=== PATIENT | female | born 1960 | race Asian ===

== ENCOUNTER 2018-10-22 09:31 | Outpatient (CLI) | payer OTHER, SELFPAY ==
[2018-10-22] VITALS (8 sets, daily range): BP systolic 91–126; BP diastolic 28–99; PULSE 59–72; RESP 16–18; O2SAT 95–99
--- NOTE | 2018-10-22 09:33 | DI.RAD.S_ITS ---
PROCEDURE: PAIN C/T FACET INJ/BLK 1ST L INDICATIONS: SPONDYLOSIS FINDINGS: Fluoroscopic spot filming was performed to verify placement of spinal needles at the C5-C6 and C6-C7 level(s), as labeled on the films. Appropriate location(s) of the needle tip(s) was confirmed by injection of iodinated contrast. IMPRESSION: Fluoroscopy for pain management. Dictated by: Katrin Espinosa M.D. on 10/22/2018 at 14:12 Approved by: Katrin Espinosa M.D. on 10/22/2018 at 14:12
--- NOTE | 2018-10-22 10:26 | PM.PROC.1 ---
Procedures Date/Time Date of procedure: 10/22/18 Time of procedure: 10:26 General Procedure description: PREOP DIAGNOSIS 1. FACET ARTHROPATHY 2. AXIAL NECK PAIN POST OP DIAGNOSIS 1. FACET ARTHROPATHY 2. AXIAL NECK PAIN PROCEDURES 1. FLUOROSCOPICALLY GUIDED, CONTRAST-CONTROLLED LEFT C5/6 AND C6/7 FACET JOINT INJECTIONS WITH CONSCIOUS SEDATION. PHYSICIAN: Jd Couch, DO INDICATIONS Kayce is referred by Dr. Tolbert for treatment of Axial Neck Pain DESCRIPTION OF PROCEDURE Fluoroscopically guided, contrast-controlled left C5/6 and C6/7 facet joint injections with conscious sedation. Following denial of allergy and review of potential side effects and complications, including, but not necessarily limited to, infection, allergic reaction, local tissue breakdown, stroke, temporary or permanent nerve injury and paralysis, the patient indicated that the patient understood and agreed to proceed. An informed consent document was signed by the patient, witnessed by a nurse, and placed in the patient's chart. Additionally, other treatment options including medications, modalities, and physical therapy were reviewed with the patient. After review of previous anaesthesic history and IV conscious sedation the patient was deemed safe to proceed with todays procedure with IV conscious sedation as ASA class II designation. Safety time-out was performed to confirm patient ID, procedure to be performed and site of procedure. IV sedation was accomplished with a combination of 2mg of Versed and 50mcg of Fentanyl was administered by the RN after DO order, titrated to patient comfort during the course of the procedure while the patient remained responsive to all verbal commands In the prone position, following sterile prep and drape of the cervical spine region, the posterior aspect of the left C5/6 and C6/7 facet joints were identified fluoroscopically. The skin was anesthetized via a 25-gauge 1.5-inch needle with 1% lidocaine solution into the corresponding facet joints. At this point, a 25-gauge 2.5-inch spinal needle was atraumatically introduced and advanced under fluoroscopic guidance into the corresponding facet joints. Following negative aspiration, injections of approximately 0.2-cc of Isovue 200 confirmed interarticular placement without vascular uptake. At this point, a total of 1 cc including 0.5 cc or 5 mg of dexamethasone combined with 0.5 cc of 1% lidocaine solution was injected without complication into each of the corresponding facet joints. The procedure tolerated the procedure well without signs or symptoms of complications prior to transfer to the recovery area continued monitoring without incident. The patient was then transferred to the recovery area where they were observed for an appropriate period of time after the injection. The patient reported a VAS score of 7 prior to the procedure and a post-procedure VAS of 0. Total Fluoroscopy Time: 20.5 seconds Total Conscious Sedation Time: 24 min POST OP INSTRUCTIONS They were provided a Pain Log to continue to record their response to the target-specific procedure prior to their follow-up visit with their referring physician. Additionally, specific post-injection care instructions and a contact number to our office were provided if concerns arise regarding possible complications associated with the procedure are suspected. Jd Couch DO Complications: none
[2018-10-22] MEDS: fentaNYL 100 MCG/2 ML INJ 50 MCG IV (10:32)
[2018-10-22] MEDS: MIDAZOLAM 5 MG/5 ML VIAL IV (10:32)
[2018-10-22] MEDS: BUPIVACAINE 0.5% (PF) VIAL 30 ML INJ (10:44)
[2018-10-22] MEDS: IOPAMIDOL 15 ML VIAL 3 ML INJ (10:44)
[2018-10-22] MEDS: DEXAMETHASONE 10 MG/ML VIAL 20 MG INJ (10:45)
--- NOTE | 2018-10-22 10:56 | PC.NURSE ---
Pt tolerated procedure well. Able to get off table with standby assist. Transferred pt to pre procedure room for continued monitoring with Audrey BEDOYA.
== END 2018-10-22 11:26 | disposition home or self-care (01) ==
PROVIDERS: Family Provider Family Medicine; PCP Family Medicine; Visit Provider Physical Medicine & Rehabilitation
DX: M47.812 Spondylosis without myelopathy or radiculopathy, cervical region (principal); M54.2 Cervicalgia
CPT/HCPCS: 64490; 64491; 99152; J1100; J2250; J3010

== ENCOUNTER 2020-10-27 14:53 | Emergency (ER) | payer OTHER, SELFPAY ==
[2020-10-27 14:59] VITALS: BP 163/82; PULSE 61; RESP 16; TEMP 36.8; O2SAT 98; BMI 24.9
--- NOTE | 2020-10-27 15:02 | DI.RAD.S_ITS ---
PROCEDURE: XR FINGER LT MIN 2V INDICATIONS: smashed finger in drift wood TECHNIQUE: AP hand, 2 views of the left finger(s) acquired. COMPARISON: None. FINDINGS: Bones: Fracture of the distal tuft of the ring finger. 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 Soft tissues: Ring finger soft tissue swelling and possible laceration. IMPRESSION: Ring finger distal tuft fracture. Dictated by: Cong Danielle M.D. on 10/27/2020 at 15:26 Approved by: Cong Danielle M.D. on 10/27/2020 at 15:30
--- NOTE | 2020-10-27 15:05 | PC.NURSE ---
Patient provided with lubricating jelly and assistance to attempt to remove ring. Unable to remove. Patient has significant amount of movement in ring at this time and states it does not feel tight. Unable to get past knuckle. Placed finger on ice.
[2020-10-27] MEDS: CEFTRIAXONE 2 GM/50 ML FROZ.PIGGY IV (16:06)
[2020-10-27] MEDS: LIDO 1%/SOD BICARB 8.4% (10ML) 10 ML SYRINGE INJ (16:07)
[2020-10-27] MEDS: OXYCODONE/ACETAMINOPHEN 5/325 TABLET 1 TAB PO (17:07)
[2020-10-27] MEDS: BACITRACIN OINT 0.9 GM PCKT 1 APPLIC TOP (17:07)
[2020-10-27 17:57] VITALS: BP 129/82; PULSE 68; RESP 18; O2SAT 98
--- NOTE | 2020-10-27 19:10 | ED_ITS ---
HPI - Extremity Injury (Upper) <JOSE Madrigal-BC - Last Filed: 10/27/20 19:16> General Chief Complaint: Extremity Injury, Upper Stated Complaint: crushed ring finger left hand Time Seen by Provider: 10/27/20 15:16 Source: patient and family Mode of arrival: Ambulatory Limitations: no limitations History of Present Illness HPI narrative: The patient is a 60-year-old female nonsmoker who presents with a chief complaint of an injury to the ring finger over left hand. She states that it was crushed under driftwood. She states that her tetanus is up-to-date. She has a ring that she is later able to remove after triage. She states she can movement, but that there is a cut and she is concerned about a fracture. Related Data Home Medications Medication Instructions Recorded Confirmed atorvastatin 40 mg tablet 40 mg PO DAILY 09/25/18 09/25/18 diclofenac sodium 75 mg 75 mg PO BID 09/25/18 09/25/18 tablet,delayed release hydrochlorothiazide 25 mg tablet 25 mg PO DAILY 09/25/18 09/25/18 Previous Rx's Medication Instructions Recorded cephalexin 500 mg PO TID #21 cap 10/27/20 oxycodone-acetaminophen 1 tab PO Q4-6H PRN #14 tab 10/27/20 Allergies Allergy/AdvReac Type Severity Reaction Status Date / Time SURGICAL TAPE Allergy Severe BLISTER, Uncoded 10/27/20 15:01 SKIN TEAR PAPER/SILK TAPE OK Review of Systems <JOSE Madrigal-BC - Last Filed: 10/27/20 19:16> Review of Systems Narrative: GENERAL: Denies chills, fatigue, malaise, fever, sweats. HEENT: Denies sinus pain, ear pain, sore throat, difficulty swallowing, dizziness. RESPIRATORY: Denies dyspnea, cough, wheezing, hemoptysis, sputum. CARDIOVASCULAR: Denies chest pain, palpitations, orthopnea, edema, GASTROINTESTINAL: Denies nausea, vomiting, abdominal pain, diarrhea, constipation, melena. : Denies dysuria, frequency, incontinence, hematuria, urinary retention. MUSCULOSKELETAL: See HPI SKIN: See HPI NEUROLOGIC: Denies weakness, headache, numbness, change in speech, confusion, seizures, incoordination. PSYCHIATRIC: No concerning psychosocial issues. 12 point review of systems is negative except for those stated above Patient History <ROCKY Madrigal - Last Filed: 10/27/20 19:16> Social History Smoking Status: Never smoker Smoking Status: Never smoker Substance Use Type: marijuana Exam <ROCKY Madrigal - Last Filed: 10/27/20 19:16> Narrative Exam Narrative: GENERAL: This is a well-nourished, well-developed patient, in no acute distress HEAD: Atraumatic. Normocephalic. No temporal or scalp tenderness. EYES: Pupils equal round and reactive. Extraocular motions intact. No scleral icterus. No injection or drainage. ENT: Nose without bleeding, purulent drainage or septal hematoma. Wearing a mask Airway patent. NECK: Trachea midline. No JVD or lymphadenopathy. Supple, nontender, no meningeal signs. CARDIOVASCULAR: Regular rate and rhythm RESPIRATORY: No cough. No increased respiratory effort no accessory muscle use. EXTREMITIES: The swelling and pain to palpation noted distal phalanx of left ring finger, with irregular 2 cm laceration at base of distal phalanx on volar aspect. Slight tissue removed on on lateral aspect of left ring finger. Capillary refill less than 2 seconds, able to fully flex and extend left ring finger against resistance. Positive left radial pulse. Gel nail Tamazight noted on fingernails, with blood using from under the tip of the nail BACK: Nontender without deformity or crepitance. No flank tenderness. NEURO: AOx3. SKIN: See extremity exam Initial Vital Signs Initial Vital Signs: Vital Signs Temperature 98.2 F 10/27/20 14:59 Pulse Rate 61 10/27/20 14:59 Respiratory Rate 16 10/27/20 14:59 Blood Pressure 163/82 H 10/27/20 14:59 Pulse Oximetry 98 10/27/20 14:59 <Mary Sage DO - Last Filed: 11/03/20 23:22> Initial Vital Signs Initial Vital Signs: Vital Signs Temperature 98.2 F 10/27/20 14:59 Pulse Rate 61 10/27/20 14:59 Respiratory Rate 16 10/27/20 14:59 Blood Pressure 163/82 H 10/27/20 14:59 Pulse Oximetry 98 10/27/20 14:59 Procedures <ROCKY Madrigal - Last Filed: 10/27/20 19:16> Laceration Repair Laceration 1: Site: hand Side (If applicable): left Size (cm): 2 Description: stellate and irregular Depth: simple, single layer Pre-repair: wound explored and irrigated extensively Skin layer closed with: nylon Size (cm): 5-0 Number of sutures: 5 Technique: simple, interrupted Nerve Block Nerve Block 1: Local Anesthetic: lidocaine 1% and with bicarb Amount of anesthesia used (mL): 4 Side: left Nerve Blocks: digital Procedure Successful: Yes Patient Tolerated Procedure: Well Orthopedic Splinting/Casting Injury #1: Side: left Upper Extremity Injury Location: finger Upper Extremity Immobilizer: finger (other) Post splinting neuro exam: intact Post splinting vascular exam: intact Placed by: Nursing Course <ROCKY Madrigal - Last Filed: 10/27/20 19:16> Orders Ordered: Discontinued Medications Bacitracin (Bacitracin Oint 0.9 Gm Pckt) 1 applic TOP NOW ONE Stop: 10/27/20 16:58 Last Admin: 10/27/20 17:07 Dose: 1 applic Documented by: SOBIA Ceftriaxone Sodium/Dextrose (Rocephin) 2 gm in 50 mls @ 100 mls/hr IV NOW ONE Stop: 10/27/20 16:04 Last Infusion: 10/27/20 16:45 Dose: 0 mls/hr Documented by: Admin: 10/27/20 16:06 Dose: 100 mls/hr Documented by: SOBIA Lidocaine/Sodium Bicarbonate (Lido 1%/Sod Bicarb 8.4% (10ml) 10 Ml Syringe) 10 ml INJ NOW ONE Stop: 10/27/20 15:36 Last Admin: 10/27/20 16:07 Dose: 10 ml Documented by: SOBIA Oxycodone/Acetaminophen (Oxycodone/Acetaminophen 5/325 Tablet) 1 tab PO NOW ONE Stop: 10/27/20 16:58 Last Admin: 10/27/20 17:07 Dose: 1 tab Documented by: SOBIA Vital Signs Vital signs: Vital Signs - 8 hr 10/27/20 14:59 10/27/20 17:57 Temperature 98.2 F Pulse Rate 61 68 Respiratory Rate 16 18 Blood Pressure 163/82 H 129/82 Pulse Oximetry 98 98 <Mary Sage DO - Last Filed: 11/03/20 23:22> Orders Ordered: Discontinued Medications Bacitracin (Bacitracin Oint 0.9 Gm Pckt) 1 applic TOP NOW ONE Stop: 10/27/20 16:58 Last Admin: 10/27/20 17:07 Dose: 1 applic Documented by: SOBIA Ceftriaxone Sodium/Dextrose (Rocephin) 2 gm in 50 mls @ 100 mls/hr IV NOW ONE Stop: 10/27/20 16:04 Last Infusion: 10/27/20 16:45 Dose: 0 mls/hr Documented by: Admin: 10/27/20 16:06 Dose: 100 mls/hr Documented by: SOBIA Lidocaine/Sodium Bicarbonate (Lido 1%/Sod Bicarb 8.4% (10ml) 10 Ml Syringe) 10 ml INJ NOW ONE Stop: 10/27/20 15:36 Last Admin: 10/27/20 16:07 Dose: 10 ml Documented by: SOBIA Oxycodone/Acetaminophen (Oxycodone/Acetaminophen 5/325 Tablet) 1 tab PO NOW ONE Stop: 10/27/20 16:58 Last Admin: 10/27/20 17:07 Dose: 1 tab Documented by: SOBIA Vital Signs Vital signs: Vital Signs - 8 hr 10/27/20 14:59 10/27/20 17:57 Temperature 98.2 F Pulse Rate 61 68 Respiratory Rate 16 18 Blood Pressure 163/82 H 129/82 Pulse Oximetry 98 98 MDM - Extremity Injury (Upper) <ROCKY Madrigal - Last Filed: 10/27/20 19:16> Imaging Data Extremity x-ray #1: My Impression: [address] [place] [id number] ReportSigned Patient: Kayce Childs [facility]#: [id number]: 8Acct:[id number]/Sex: 60 / FDate of Service: 10/27/20Loc: EDAccession Number: [id number] Procedure: XR finger LT min 2V Ordering Provider: Mary Sage D.O. PROCEDURE: XR FINGER LT MIN 2V INDICATIONS: smashed finger in drift wood TECHNIQUE: AP hand, 2 views of the left finger(s) acquired. COMPARISON: None. FINDINGS: Bones: Fracture of the distal tuft of the ring finger. 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 Soft tissues: Ring finger soft tissue swelling and possible laceration. IMPRESSION: Ring finger distal tuft fracture. Dictated by: Cong Danielle M.D. on 10/27/2020 at 15:26 Approved by: Cong Danielle M.D. on 10/27/2020 at 15:30 [facility] Narrative Medical decision making narrative: The patient is a 60-year-old female who presents with a chief complaint of an injury to her left ring finger. X-ray indicates a tuft fracture with overlying laceration, resulting in an open fracture. She was given 2 g of IV Rocephin and placed on Keflex. I placed loos e sutures to approximate the wound as best able after copious cleansing the povidone iodine and pressure washing by nursing. Patient's tetanus is updated. Discussed the pros and cons of removing her gel nail Tamazight, and she elected to leave it on. We did give her a prescription of Percocet for pain. I discussed at length rest ice compression elevation strict ER return precautions for any concerns about decreased circulation. Encouraged follow-up with primary care provider in the next few days. Discussed that PCP may want her to follow up with Orthopedics, gave her contact information for [facility] as well. Discussed keeping her finger clean and dry, not submerging into dirty water as this can increase her chance of infection. Patient and have no questions or concerns upon discharge states understanding of return precautions as well as follow-up care. Discharge Plan Departure Patient Disposition: Home Clinical Impression: Open finger fracture Qualifiers: Encounter type: initial encounter Finger: ring finger Phalanx: distal Fracture alignment: nondisplaced Laterality: left Qualified Code(s): S62.665B - Nondisplaced fracture of distal phalanx of left ring finger, initial encounter for open fracture Instructions: DI for Finger Fracture, How To Perform RICE (Rest, Ice, Compress, Elevate), How to Take Care of Your Splint, DI for Open Fracture Activity Restrictions/Additional Instructions: Thank you for trusting us with your care today. As discussed, you have a fracture your finger which is underneath a laceration, which can increase your risk of infection. Subsequently we gave you IV antibiotics and I sent in a prescription of antibiotics to [facility] in [place]. Please take this with probiotic or yogurt to help reduce antibiotic related side effects. I also sent in a prescription of oxycodone with acetaminophen for pain. You have been prescribed narcotic medications. While on these medications you cannot drive or operate heavy machinery. Additionally you cannot sign legal documents or perform any duties such as this. Many people get constipated on narcotic medications so it would be advisable to discuss stool softeners with the pharmacist when you coal picker your prescription. As discussed, please clean and dry. Do not submerge into dirty water. This can increase your chance of infection. Please monitor for signs of infection such as extending redness or purulent drainage. Please come back to the emergency department for any acute concerns. Please follow-up with primary care provider in the next few days. I have also given you contact information to the [facility] in case your primary care provider would prefer you follow-up with them. I Placed 5 sutures in your finger. Hand sutures generally come out in about a week. Please follow-up with primary care provider. Prescriptions: New oxycodone-acetaminophen 5-325 mg tablet 1 tab PO Q4-6H PRN (Reason: pain) Qty: 14 RF: 0 cephalexin 500 mg capsule 500 mg PO TID Qty: 21 RF: 0 No Action hydrochlorothiazide 25 mg tablet 25 mg PO DAILY RF: 0 atorvastatin 40 mg tablet 40 mg PO DAILY RF: 0 diclofenac sodium 75 mg tablet,delayed release (DR/EC) 75 mg PO BID RF: 0 Referrals: Heath Tolbert MD [Primary Care Provider] - <Mary Sage DO - Last Filed: 11/03/20 23:22> [facility] ED Attending Suryaature Attestation: I was immediately available in the department for consultation. Documentation has been reviewed. I agree with assessment and plan.
== END 2020-10-27 17:59 | disposition home or self-care (01) ==
PROVIDERS: Emergency Provider Nurse Practitioner Family; Family Provider Family Medicine; PCP Family Medicine
DX: S62.665B Nondisplaced fracture of distal phalanx of left ring finger, initial encounter for open fracture (principal); W23.0XXA Caught, crushed, jammed, or pinched between moving objects, initial encounter
CPT/HCPCS: 12001; 29130; 64450; 73140; 96365; 99284; J0696